=== PATIENT | female | born 1975 | race Caucasian/White ===

== ENCOUNTER 2017-10-12 02:50 | Emergency (ER) | payer BC ==
[2017-10-12 04:31] VITALS: BP 125/74; PULSE 87; TEMP 98.3; BMI 28.7
--- NOTE | 2017-10-12 07:15 | PDOC ---
History of Present Illness - General Chief Complaint: Pain Stated Complaint: FACIAL PAIN Time Seen by Provider: 10/12/17 07:14 - History of Present Illness Initial Comments: 42 year old female with PMH of trigeminal neuralgia presenting with chronic trigeminal neuralgia over the last few months. She is a patient of Dr. Noriega and is on Takendi (Topiramte) 75, Doxazin 50 nightly, Oxycontin, and Gabapentin 400 BID. The pain has been debilitating for the last few months and has prevented her from working despite up-titration of her medication. Describes the pain as a sharp sometimes tingling sensation shooting from the back of her right jaw around to her bottom teeth and lips. She is otherwise healthy. Denies fevers, chills, nausea vomiting, diarrhea, chest pain, or other symptoms. 10/12/17 07:32 Past History - Past Medical History Allergies/Adverse Reactions: Allergies Allergy/AdvReac Type Severity Reaction Status Date / Time No Known Allergies Allergy Verified 10/12/17 04:07 Home Medications: Ambulatory Orders Doxepin HCl 50 mg PO HS 10/12/17 Oxycodone HCl [Oxycodone HCl ER] 15 mg PO DAILY PRN 10/12/17 Pregabalin [Lyrica -] 400 mg PO BID 10/12/17 Topiramate [Trokendi Xr] 75 mg PO DAILY 10/12/17 - Surgical History Abdominal Surgery: Yes Cholecystectomy: Yes - Suicide/Smoking/Psychosocial Hx Smoking Status: No Smoking History: Never smoked Have you smoked in the past 12 months: No Number of Cigarettes Smoked Daily: 0 Information on smoking cessation initiated: No Hx Alcohol Use: No Drug/Substance Use Hx: No Review of Systems - Review of Systems Constitutional: No: Chills, Diaphoresis, Fever, Loss of Appetite HEENTM: No: Blurred Vision, Recent change in vision, Double Vision Respiratory: No: Cough, Shortness of Breath, Wheezing Cardiac (ROS): No: Chest Pain, Irregular Heart Rate, Chest Tightness ABD/GI: No: Diarrhea, Nausea, Vomiting : No: Burning, Dysuria, Discharge Musculoskeletal: Yes: Muscle Pain. No: Back Pain, Joint Pain *Physical Exam - Vital Signs Last Vital Signs Temp Pulse Resp BP Pulse Ox 98.3 F 87 14 125/74 99 10/12/17 04:07 10/12/17 04:07 10/12/17 04:07 10/12/17 04:07 10/12/17 04:07 - Physical Exam General Appearance: Yes: Nourished, Appropriately Dressed. No: Apparent Distress HEENT: positive: EOMI, MINDY, Normal ENT Inspection, Normal Voice Neck: positive: Trachea midline, Normal Thyroid, Supple. negative: Tender, Rigid Respiratory/Chest: positive: Lungs Clear, Normal Breath Sounds. negative: Chest Tender, Respiratory Distress Cardiovascular: positive: Regular Rhythm, Regular Rate Gastrointestinal/Abdominal: positive: Normal Bowel Sounds, Flat, Soft. negative : Tender Musculoskeletal: positive: Normal Inspection Extremity: positive: Normal Capillary Refill, Normal Inspection, Normal Range of Motion. negative: Tender Integumentary: positive: Normal Color, Dry, Warm Neurologic: positive: marketing sales consultant II-XII NML intact, Fully Oriented, Alert, Normal Mood/ Affect, Normal Response, Motor Strength 5/5. negative: Facial Droop Medical Decision Making - Medical Decision Making Spoke to Dr. Norieag and and he would like to prescribe her an antidepressant in his office and explore an ultrasound procedure for her neuralgia. In the acute setting we will use Toradol 30 IM and 2 Percocet. 10/12/17 08:57 Patient feeling better after the medication so will D/C with instructions to follow up with Leann earlier for med management and procedure planning. 10/12/17 10:56 *DC/Admit/Observation/Transfer Diagnosis at time of Disposition: Trigeminal neuralgia of right side of face - Discharge Dispostion Disposition: HOME Condition at time of disposition: Improved Admit: No - Referrals Referrals: Steve Ochoa MD [Primary Care Provider] - Quentin Noriega MD [Staff Physician] - - Patient Instructions Printed Discharge Instructions: DI for Trigeminal Neuralgia Additional Instructions: Please follow up with Dr. Noriega earlier this week or next week for medication management. Please return to the ED if you have any new or worsening symptoms. - Post Discharge Activity
[2017-10-12] MEDS ORDERED: KETOROLAC TROMETHAMINE 30 MG/1 ML VIAL IM ONE (08:56)
--- NOTE | 2017-10-12 09:05 | PDOC ---
Attending Attestation - Resident Resident Name: Rui Cody - ED Attending Attestation I have performed the following: I have examined & evaluated the patient, The case was reviewed & discussed with the resident, I agree w/resident's findings & plan, Exceptions are as noted - HPI HPI: 10/12/17 09:00 42-year-old female with history of trigeminal neuralgia with recurrence that began about 6 weeks ago, currently on increasing doses of gabapentin, Lyrica, and oxycodone as needed under the care of Dr. Noriega presents with intractable R facial trigeminal neuralgia pain despite medications. no changes or neuro deficits, next appt with Dr. Noriega is in October so she presents for pain relief and a plan. - Physicial Exam PE: 10/12/17 09:01 Afebrile, vital signs normal Overall well-appearing but in some distress secondary to right facial pain Pupils are equal round reactive, visual acuity is normal No motor deficit No rash - Medical Decision Making 10/12/17 09:05 Patient seen and evaluated with the resident. I agree with the overall evaluation, assessment, and management with the following summary of visit: My resident note 42-year-old female with history of trigeminal neuralgia experiencing exacerbation over the last 6 weeks presents for intractable pain despite increasing pain medications at home. No neurological deficits or new complaints. Pain control in ED - reassess Discussed with Dr. Noriega, plan is to expedite next appointment and attempt ultrasound treatment
[2017-10-12] MEDS ORDERED: KETOROLAC TROMETHAMINE 30 MG/1 ML VIAL ONE (10:11)
== END 2017-10-12 11:04 | disposition home or self-care (01) ==
LOC: JER 02:50
PROC: 3E0233Z Introduction of Anti-inflammatory into Muscle, Percutaneous Approach (ICD-10-PCS; principal; 2017-10-12)
DX: G50.0 Trigeminal neuralgia (principal)
CPT/HCPCS: 84703; 99281-25

== ENCOUNTER 2020-08-03 21:39 | Emergency (ER) | payer BC, OTHER ==
[2020-08-03 21:59] VITALS: BMI 29.2
[2020-08-03] MEDS ORDERED: ACETAMINOPHEN 1000 MG/100 ML BAG IVPB ONE (23:19)
[2020-08-03] MEDS ORDERED: SODIUM CHLORIDE 0.9% 500 ML INFUS.BAG IV ONE (23:20)
[2020-08-03] MEDS ORDERED: DEXAMETHASONE SOD PHOSPHATE 4 MG/1 ML VIAL IVPUSH ONE (23:27)
[2020-08-03] MEDS ORDERED: DEXAMETHASONE SOD PHOSPHATE 10 MG/1 ML VIAL ONE (23:40)
[2020-08-04 00:16] LABS: BASO % 0.2 % (0-2.0); EOS % 0.1 % (0-4.5); HEMATOCRIT 38.9 % (32.4-45.2); HEMOGLOBIN 13.2 GM/dL (10.7-15.3); LYMPH % 10.7 % (8-40); MCH 31.5 pg (25.7-33.7); MEAN CELL VOLUME 92.7 fl (80-96); MEAN PLT VOLUME 9.8 fl (7.5-11.1); MONO % 5.1 % (3.8-10.2); NEUT % 83.9 % (42.8-82.8); PLATELET COUNT 243 K/MM3 (134-434); RBC 4.19 M/mm3 (3.60-5.2); RDW 13.4 % (11.6-15.6); WHITE BLOOD COUNT 6.1 K/mm3 (4.0-10.0)
[2020-08-04] MEDS ORDERED: ACETAMINOPHEN INJECTION 100 ML IVPB ONE (00:20)
[2020-08-04 00:30] LABS: CHLORIDE 107 mmol/L (98-107); SODIUM 141 mmol/L (136-145)
[2020-08-04 00:32] LABS: ALBUMIN 3.7 g/dl (3.4-5.0); ANION GAP 8 MMOL/L (8-16); CALCIUM 8.3 mg/dL (8.5-10.1); CO2 26 mmol/L (21-32); GLUCOSE,RANDOM 106 mg/dL (74-106)
[2020-08-04 00:35] LABS: BILIRUBIN,DIRECT 0.1 mg/dL (0.0-0.2); CREATININE 0.6 mg/dL (0.55-1.3); SGOT/AST 13 U/L (15-37); SGPT/ALT 18 U/L (13-61)
[2020-08-04 00:36] LABS: LDH 124 U/L (84-246)
[2020-08-04 00:37] LABS: BILIRUBIN,TOTAL 0.2 mg/dL (0.2-1); TOT PROT 7.2 g/dl (6.4-8.2)
[2020-08-04 00:38] LABS: ALK PHOS 79 U/L (45-117)
[2020-08-04 00:48] LABS: INR 1.05 (0.83-1.09); PROTHROMBIN TIME (PATIENT) 12.7 SEC (9.7-13.0)
[2020-08-04 00:51] LABS: ACTIVATED PTT 30.1 SECONDS (25.2-36.5)
[2020-08-04] MEDS ORDERED: CEFTRIAXONE 1,000 MG in DEXTROSE 5%-WATER - 50 ML IVPB ONE (03:33)
[2020-08-04] MEDS ORDERED: AZITHROMYCIN IVPB 500 MG in DEXTROSE 5%-WATER - 250 ML IVPB ONE (03:33)
[2020-08-04 03:47] VITALS: BP 103/65; PULSE 98; TEMP 100.4
[2020-08-04] MEDS ORDERED: AZITHROMYCIN IVPB 500 MG/250 ML BAG IVPB ONE (05:37)
[2020-08-04] MEDS ORDERED: CEFTRIAXONE 1 GM/50 ML BAG ONE (06:11)
[2020-08-04] MEDS ORDERED: ACETAMINOPHEN 500 MG TABLET (FP) PO ONE (06:45)
[2020-08-04] MEDS ORDERED: ACETAMINOPHEN 325 MG TABLET (FP) ONE (06:46)
== END 2020-08-04 07:01 | disposition home or self-care (01) ==
LOC: JER 21:39
PROC: 3E0333Z Introduction of Anti-inflammatory into Peripheral Vein, Percutaneous Approach (ICD-10-PCS; principal; 2020-08-03)
PROC: 3E03329 Introduction of Other Anti-infective into Peripheral Vein, Percutaneous Approach (ICD-10-PCS; 2020-08-03)
PROC: 3E03329 Introduction of Other Anti-infective into Peripheral Vein, Percutaneous Approach (ICD-10-PCS; 2020-08-03)
PROC: 3E033GC Introduction of Other Therapeutic Substance into Peripheral Vein, Percutaneous Approach (ICD-10-PCS; 2020-08-03)
DX: U07.1 COVID-19 (principal); R07.9 Chest pain, unspecified; M54.5 Low back pain
CPT/HCPCS: 36415; 71045-TC-FY; 71275-TC; 80053; 82248; 82550; 82728; 83605; 83615; 84484; 85025; 85610; 85730; 86140; 87040; 93005; 93010; 99285-25; J0131; Q9967

== ENCOUNTER 2020-08-07 12:04 | Inpatient (IN) | payer BC ==
[2020-08-07 12:40] VITALS: BMI 29.2
[2020-08-07] MEDS ORDERED: CEFTRIAXONE 1,000 MG in DEXTROSE 5%-WATER - 50 ML IVPB ONE (13:07)
[2020-08-07] MEDS ORDERED: AZITHROMYCIN 500 MG TABLET PO ONE (13:07)
[2020-08-07] MEDS ORDERED: AZITHROMYCIN 500 MG TABLET ONE (13:38)
[2020-08-07] MEDS ORDERED: CEFTRIAXONE 1 GM/50 ML BAG ONE (13:38)
[2020-08-07 13:47] LABS: BASO % 0.1 % (0-2.0); EOS % 0.4 % (0-4.5); HEMATOCRIT 38.3 % (32.4-45.2); HEMOGLOBIN 13.1 GM/dL (10.7-15.3); LYMPH % 7.9 % (8-40); MCH 31.5 pg (25.7-33.7); MCHC 34.1 g/dl (32.0-36.0); MEAN CELL VOLUME 92.3 fl (80-96); MONO % 3.4 % (3.8-10.2); NEUT % 88.2 % (42.8-82.8); PLATELET COUNT 305 K/MM3 (134-434); RBC 4.14 M/mm3 (3.60-5.2); RDW 13.3 % (11.6-15.6); WHITE BLOOD COUNT 8.3 K/mm3 (4.0-10.0)
[2020-08-07 14:09] LABS: INR 1.07 (0.83-1.09); PROTHROMBIN TIME (PATIENT) 12.9 SEC (9.7-13.0)
[2020-08-07 14:11] LABS: ACTIVATED PTT 28.7 SECONDS (25.2-36.5); CHLORIDE 106 mmol/L (98-107); POTASSIUM 4.1 mmol/L (3.5-5.1); SODIUM 139 mmol/L (136-145)
[2020-08-07 14:13] LABS: CALCIUM 8.1 mg/dL (8.5-10.1)
[2020-08-07 14:14] LABS: ALBUMIN 3.3 g/dl (3.4-5.0); ANION GAP 6 MMOL/L (8-16); BLOOD UREA NITROGEN 7.7 mg/dL (7-18); CO2 27 mmol/L (21-32); GLUCOSE,RANDOM 96 mg/dL (74-106)
[2020-08-07 14:16] LABS: BILIRUBIN,DIRECT 0.1 mg/dL (0.0-0.2)
[2020-08-07 14:17] LABS: CREATININE 0.5 mg/dL (0.55-1.3); SGOT/AST 27 U/L (15-37); SGPT/ALT 26 U/L (13-61)
[2020-08-07 14:18] LABS: BILIRUBIN,TOTAL 0.4 mg/dL (0.2-1); TOT PROT 6.8 g/dl (6.4-8.2)
[2020-08-07 14:20] LABS: ALK PHOS 73 U/L (45-117)
[2020-08-07 14:21] LABS: LDH 189 U/L (84-246)
[2020-08-07] MEDS ORDERED: ALBUTEROL SO4 HFA INHALER IH PRN (16:23)
[2020-08-07] MEDS ORDERED: BENZOCAINE/MENTH/CETYLPYRD CL 1 EACH LOZENGE MM PRN (16:25)
[2020-08-07 19:15] LABS: URINE APPEARANCE Clear; URINE BILIRUBIN Negative (NEGATIVE); URINE COLOR Yellow; URINE GLUCOSE (UA) Negative (NEGATIVE); URINE KETONE 1+ (NEGATIVE); URINE LEUK ESTERASE Trace (NEGATIVE); URINE NITRITE Negative (NEGATIVE); URINE PROTEIN Negative (NEGATIVE); URINE UROBILINOGEN 0.2 mg/dL (0.2-1.0)
[2020-08-07] MEDS ORDERED: DIVALPROEX SODIUM 125 MG TABLET E.C. ONE (21:57)
[2020-08-07] MEDS: DIVALPROEX SODIUM 250 MG TABLET E.C. PO SCH (22:01)
[2020-08-08] MEDS ORDERED: ACETAMINOPHEN 325 MG TABLET (FP) PO ONE (04:07)
[2020-08-08 06:49] LABS: HEMATOCRIT 37.8 % (32.4-45.2); HEMOGLOBIN 13.2 GM/dL (10.7-15.3); MCH 31.6 pg (25.7-33.7); MCHC 34.9 g/dl (32.0-36.0); MEAN CELL VOLUME 90.7 fl (80-96); MEAN PLT VOLUME 9.3 fl (7.5-11.1); PLATELET COUNT 361 K/MM3 (134-434); RBC 4.16 M/mm3 (3.60-5.2); RDW 12.9 % (11.6-15.6); WHITE BLOOD COUNT 5.4 K/mm3 (4.0-10.0)
[2020-08-08 09:57] LABS: CALCIUM 8.7 mg/dL (8.5-10.1)
[2020-08-08] MEDS: DEXAMETHASONE 4 MG TABLET (FP) PO SCH (09:57)
[2020-08-08 09:58] LABS: ALBUMIN 3.4 g/dl (3.4-5.0); BLOOD UREA NITROGEN 10.4 mg/dL (7-18); MAGNESIUM 2.4 mg/dL (1.8-2.4)
[2020-08-08] MEDS: ENOXAPARIN NA (PORCINE) 40 MG/0.4 ML DISP.SYRIN SQ SCH (10:00)
[2020-08-08 10:01] LABS: BILIRUBIN,TOTAL 0.3 mg/dL (0.2-1); CREATININE 0.6 mg/dL (0.55-1.3); PHOSPHOROUS 3.4 mg/dL (2.5-4.9)
[2020-08-08 10:02] LABS: TOT PROT 7.1 g/dl (6.4-8.2)
[2020-08-08] MEDS ORDERED: REMDESIVIR 200 MG in SODIUM CHLORIDE 210 ML IVPB ONE (11:53)
[2020-08-08] MEDS: ACETAMINOPHEN 325 MG TABLET (FP) PO PRN ×2 (12:34→21:38)
[2020-08-08] MEDS ORDERED: ALBUTEROL SO4 HFA INHALER IH PRN (12:40)
[2020-08-08] MEDS ORDERED: PT OWN MED DRAWER 7, Y5N ONE (20:55)
[2020-08-08] MEDS: ASCORBIC ACID 500 MG TABLET (FP) PO SCH (21:37)
[2020-08-08] MEDS: FAMOTIDINE 20 MG TABLET PO SCH (21:37)
[2020-08-08] MEDS: DIVALPROEX SODIUM 250 MG TABLET E.C. PO SCH (21:46)
[2020-08-08] MEDS ORDERED: ZOLPIDEM TARTRATE 5 MG TABLET PO ONE (22:44)
[2020-08-08] MEDS ORDERED: MELATONIN 5 MG TABLETS PO ONE (22:49)
[2020-08-09 09:03] LABS: HEMATOCRIT 37.3 % (32.4-45.2); MCH 31.8 pg (25.7-33.7); MCHC 34.8 g/dl (32.0-36.0); MEAN CELL VOLUME 91.4 fl (80-96); MEAN PLT VOLUME 8.8 fl (7.5-11.1); PLATELET COUNT 405 K/MM3 (134-434); RBC 4.08 M/mm3 (3.60-5.2); WHITE BLOOD COUNT 8.6 K/mm3 (4.0-10.0)
[2020-08-09 09:17] LABS: POTASSIUM 3.9 mmol/L (3.5-5.1)
[2020-08-09 09:20] LABS: CALCIUM 8.8 mg/dL (8.5-10.1)
[2020-08-09 09:22] LABS: ALBUMIN 3.3 g/dl (3.4-5.0)
[2020-08-09 09:24] LABS: CREATININE 0.6 mg/dL (0.55-1.3)
[2020-08-09 09:25] LABS: BILIRUBIN,TOTAL 0.2 mg/dL (0.2-1); TOT PROT 6.7 g/dl (6.4-8.2)
[2020-08-09] MEDS: FAMOTIDINE 20 MG TABLET PO SCH ×2 (10:44→21:46)
[2020-08-09] MEDS: CHOLECALCIFEROL (VIT D3) 1,000 UNIT (25 MCG) TABLET PO SCH (10:44)
[2020-08-09] MEDS: ZINC SULFATE 220 MG CAPSULE (FP) PO SCH (10:44)
[2020-08-09] MEDS: ENOXAPARIN NA (PORCINE) 40 MG/0.4 ML DISP.SYRIN SQ SCH (10:44)
[2020-08-09] MEDS: ASCORBIC ACID 500 MG TABLET (FP) PO SCH ×2 (10:45→21:46)
[2020-08-09] MEDS: DEXAMETHASONE 4 MG TABLET (FP) PO SCH (10:45)
[2020-08-09] MEDS: REMDESIVIR 100 MG in SODIUM CHLORIDE 230 ML IVPB SCH (13:53)
[2020-08-09] MEDS: ACETAMINOPHEN 325 MG TABLET (FP) PO PRN (14:01)
[2020-08-09] MEDS ORDERED: ONDANSETRON 4 MG/2 ML VIAL IVPUSH PRN (18:41)
[2020-08-09] MEDS ORDERED: PT OWN MED DRAWER 7, Y5N ONE (21:11)
[2020-08-09] MEDS ORDERED: MELATONIN 5 MG TABLETS PO PRN (21:19)
[2020-08-09] MEDS: DIVALPROEX SODIUM 250 MG TABLET E.C. PO SCH (21:47)
[2020-08-10] MEDS: FAMOTIDINE 20 MG TABLET PO SCH ×2 (09:23→22:05)
[2020-08-10] MEDS: CHOLECALCIFEROL (VIT D3) 1,000 UNIT (25 MCG) TABLET PO SCH (09:23)
[2020-08-10] MEDS: ASCORBIC ACID 500 MG TABLET (FP) PO SCH ×2 (09:23→22:05)
[2020-08-10] MEDS: ENOXAPARIN NA (PORCINE) 40 MG/0.4 ML DISP.SYRIN SQ SCH (09:23)
[2020-08-10] MEDS: ZINC SULFATE 220 MG CAPSULE (FP) PO SCH (09:24)
[2020-08-10] MEDS ORDERED: DEXAMETHASONE SOD PHOSPHATE 10 MG/1 ML VIAL IVPUSH ONE (10:00)
[2020-08-10] MEDS ORDERED: ONDANSETRON 4 MG/2 ML VIAL IVPB PRN (10:24)
[2020-08-10] MEDS: REMDESIVIR 100 MG in SODIUM CHLORIDE 230 ML IVPB SCH (11:16)
[2020-08-10] MEDS: DOXEPIN HCL 25 MG CAPSULE PO PRN (23:24)
[2020-08-10] MEDS: DIVALPROEX SODIUM 250 MG TABLET E.C. PO SCH (23:24)
[2020-08-10] MEDS ORDERED: PT OWN MED DRAWER 7, Y5N ONE (23:35)
[2020-08-11] MEDS: ENOXAPARIN NA (PORCINE) 40 MG/0.4 ML DISP.SYRIN SQ SCH (09:10)
[2020-08-11] MEDS: CHOLECALCIFEROL (VIT D3) 1,000 UNIT (25 MCG) TABLET PO SCH (09:10)
[2020-08-11] MEDS: guaiFENesin 200 MG/10 ML 10 ML UNIT-DOSE CUPS PO PRN (09:10)
[2020-08-11] MEDS: ASCORBIC ACID 500 MG TABLET (FP) PO SCH ×2 (09:11→22:13)
[2020-08-11] MEDS: ZINC SULFATE 220 MG CAPSULE (FP) PO SCH (09:11)
[2020-08-11] MEDS: FAMOTIDINE 20 MG TABLET PO SCH ×2 (09:11→22:13)
[2020-08-11 10:25] LABS: HEMOGLOBIN 12.8 GM/dL (10.7-15.3); MCH 31.5 pg (25.7-33.7); MCHC 34.5 g/dl (32.0-36.0); MEAN CELL VOLUME 91.3 fl (80-96); PLATELET COUNT 386 K/MM3 (134-434); RBC 4.05 M/mm3 (3.60-5.2)
[2020-08-11 10:47] LABS: POTASSIUM 3.5 mmol/L (3.5-5.1)
[2020-08-11 10:56] LABS: ALBUMIN 3.1 g/dl (3.4-5.0); CALCIUM 8.7 mg/dL (8.5-10.1); CREATININE 0.8 mg/dL (0.55-1.3)
[2020-08-11 10:58] LABS: BILIRUBIN,TOTAL 0.2 mg/dL (0.2-1); TOT PROT 6.4 g/dl (6.4-8.2)
[2020-08-11] MEDS: REMDESIVIR 100 MG in SODIUM CHLORIDE 230 ML IVPB SCH (11:20)
[2020-08-11] MEDS: ACETAMINOPHEN 325 MG TABLET (FP) PO PRN (16:43)
[2020-08-11] MEDS ORDERED: PT OWN MED DRAWER 7, Y5N ONE (21:23)
[2020-08-11] MEDS: DOXEPIN HCL 25 MG CAPSULE PO PRN (22:13)
[2020-08-11] MEDS: DIVALPROEX SODIUM 250 MG TABLET E.C. PO SCH (22:14)
[2020-08-12] MEDS: FAMOTIDINE 20 MG TABLET PO SCH ×2 (09:12→21:09)
[2020-08-12] MEDS: ENOXAPARIN NA (PORCINE) 40 MG/0.4 ML DISP.SYRIN SQ SCH (09:12)
[2020-08-12] MEDS: ASCORBIC ACID 500 MG TABLET (FP) PO SCH ×2 (09:12→21:08)
[2020-08-12] MEDS: CHOLECALCIFEROL (VIT D3) 1,000 UNIT (25 MCG) TABLET PO SCH (09:12)
[2020-08-12] MEDS: ZINC SULFATE 220 MG CAPSULE (FP) PO SCH (09:12)
[2020-08-12] MEDS: REMDESIVIR 100 MG in SODIUM CHLORIDE 230 ML IVPB SCH (11:16)
[2020-08-12] MEDS: ACETAMINOPHEN 325 MG TABLET (FP) PO PRN (13:47)
[2020-08-12] MEDS ORDERED: PT OWN MED DRAWER 7, Y5N ONE ×2 (20:11→21:30)
[2020-08-12] MEDS: DIVALPROEX SODIUM 250 MG TABLET E.C. PO SCH (21:08)
[2020-08-13] MEDS ORDERED: DEXAMETHASONE 2 MG TABLET PO SCH (10:00)
[2020-08-13] MEDS ORDERED: PT OWN MED DRAWER 7, Y5N ONE ×5 (10:16→22:16)
[2020-08-13] MEDS ORDERED: DEXAMETHASONE PO SCH (10:30)
[2020-08-13] MEDS: ENOXAPARIN NA (PORCINE) 40 MG/0.4 ML DISP.SYRIN SQ SCH (10:45)
[2020-08-13] MEDS: CHOLECALCIFEROL (VIT D3) 1,000 UNIT (25 MCG) TABLET PO SCH (10:45)
[2020-08-13] MEDS: ASCORBIC ACID 500 MG TABLET (FP) PO SCH ×2 (10:45→21:07)
[2020-08-13] MEDS: FAMOTIDINE 20 MG TABLET PO SCH ×2 (10:45→21:07)
[2020-08-13] MEDS: guaiFENesin 200 MG/10 ML 10 ML UNIT-DOSE CUPS PO PRN (10:45)
[2020-08-13] MEDS: ZINC SULFATE 220 MG CAPSULE (FP) PO SCH (10:49)
[2020-08-13] MEDS: ALBUTEROL SO4 HFA INHALER IH SCH ×2 (13:39→20:38)
[2020-08-13] MEDS: DIVALPROEX SODIUM 250 MG TABLET E.C. PO SCH (21:07)
[2020-08-13] MEDS: DOXEPIN HCL 25 MG CAPSULE PO PRN (21:08)
[2020-08-14] MEDS: ZINC SULFATE 220 MG CAPSULE (FP) PO SCH (09:33)
[2020-08-14] MEDS: ASCORBIC ACID 500 MG TABLET (FP) PO SCH (09:33)
[2020-08-14] MEDS: CHOLECALCIFEROL (VIT D3) 1,000 UNIT (25 MCG) TABLET PO SCH (09:34)
[2020-08-14] MEDS: FAMOTIDINE 20 MG TABLET PO SCH (09:34)
[2020-08-14] MEDS: ENOXAPARIN NA (PORCINE) 40 MG/0.4 ML DISP.SYRIN SQ SCH (09:34)
[2020-08-14] MEDS: ALBUTEROL SO4 HFA INHALER IH SCH ×2 (09:34→14:41)
[2020-08-14] MEDS ORDERED: DEXAMETHASONE 4 MG TABLET (FP) PO SCH (10:00)
[2020-08-14 15:36] VITALS: BP 113/60; PULSE 99; TEMP 97.5
== END 2020-08-14 16:18 | disposition home or self-care (01) | DRG 177 ==
LOC: JER 12:04 → JERBED 15:49 → J4S 08-08 03:23 → J8W 08-08 18:13
PROVIDERS: ADMIT Internal Medicine; ATTEND Internal Medicine
PROC: XW13325 Transfusion of Convalescent Plasma (Nonautologous) into Peripheral Vein, Percutaneous Approach, New Technology Group 5 (ICD-10-PCS; principal; 2020-08-08)
PROC: XW033E5 Introduction of Remdesivir Anti-infective into Peripheral Vein, Percutaneous Approach, New Technology Group 5 (ICD-10-PCS; 2020-08-08)
DX: U07.1 COVID-19 (principal); J96.01 Acute respiratory failure with hypoxia; J12.82 Pneumonia due to coronavirus disease 2019; N39.0 Urinary tract infection, site not specified; J45.909 Unspecified asthma, uncomplicated; G50.0 Trigeminal neuralgia; G43.909 Migraine, unspecified, not intractable, without status migrainosus; F32.9 Major depressive disorder, single episode, unspecified; B96.20 Unspecified Escherichia coli [E. coli] as the cause of diseases classified elsewhere
CPT/HCPCS: 36415; 36430; 71045-TC-FY; 80053; 81003; 82248; 82550; 82728; 83605; 83615; 83735; 84100; 84439; 84443; 84484; 85025; 85027; 85379; 85610; 85730; 86140; 86850; 86900; 86901; 87040; 87086; 87186; 87804; 93005; 93010; 93306-TC; 94010; 94761; 99291; C9399; C9803; J1100; J8540; P9017; U0003

== ENCOUNTER 2023-10-20 15:02 | Day surgery (SDC) | payer BC, OTHER ==
[2023-10-20] MEDS: IRON SUCROSE INJECTION 300 MG in SODIUM CHLORIDE 250 ML IVPB ONE (15:27)
[2023-10-20 16:16] VITALS: RESP 18; TEMP 98.8
[2023-10-20 16:53] VITALS: BP 110/65; PULSE 78
== END 2023-10-20 17:10 | disposition home or self-care (01) ==
LOC: JONCNONCHE 15:02 → J7W 15:06 → JONCNONCHE 17:10
PROVIDERS: ATTEND Internal Medicine Hematology & Oncology
PROC: 3E033GC Introduction of Other Therapeutic Substance into Peripheral Vein, Percutaneous Approach (ICD-10-PCS; principal; 2023-10-20)
DX: D50.9 Iron deficiency anemia, unspecified (principal)
CPT/HCPCS: 96365; J1756

== ENCOUNTER 2023-10-27 12:05 | Day surgery (SDC) | payer BC, OTHER ==
[2023-10-27] MEDS: IRON SUCROSE INJECTION 300 MG in SODIUM CHLORIDE 250 ML IVPB ONE (12:33)
[2023-10-27 17:55] VITALS: BP 103/62; PULSE 77; RESP 20; TEMP 98.5
== END 2023-10-27 14:25 | disposition home or self-care (01) ==
LOC: J7W 12:05 → JONCNONCHE 12:05
PROVIDERS: ATTEND Internal Medicine Hematology & Oncology
PROC: 3E033GC Introduction of Other Therapeutic Substance into Peripheral Vein, Percutaneous Approach (ICD-10-PCS; principal; 2023-10-27)
DX: D50.9 Iron deficiency anemia, unspecified (principal)
CPT/HCPCS: 96365; J1756

== ENCOUNTER 2023-11-03 14:18 | Day surgery (SDC) | payer BC, OTHER ==
[2023-11-03] MEDS: IRON SUCROSE INJECTION 300 MG in SODIUM CHLORIDE 250 ML IVPB ONE (14:31)
[2023-11-03 16:16] VITALS: RESP 18; TEMP 98.1
[2023-11-03 16:23] VITALS: BP 116/70; PULSE 85
== END 2023-11-03 16:31 | disposition home or self-care (01) ==
LOC: JONCNONCHE 14:18 → J7W 14:19 → JONCNONCHE 16:31
PROVIDERS: ATTEND Internal Medicine Hematology & Oncology
PROC: 3E033GC Introduction of Other Therapeutic Substance into Peripheral Vein, Percutaneous Approach (ICD-10-PCS; principal; 2023-11-03)
DX: D50.9 Iron deficiency anemia, unspecified (principal)
CPT/HCPCS: 96365; J1756

== ENCOUNTER 2023-11-10 11:57 | Day surgery (SDC) | payer BC, OTHER ==
[2023-11-10] MEDS: IRON SUCROSE INJECTION 300 MG in SODIUM CHLORIDE 250 ML IVPB ONE (12:22)
[2023-11-10 16:01] VITALS: TEMP 98.2
[2023-11-10 16:07] VITALS: BP 115/67; PULSE 76; RESP 20
== END 2023-11-10 13:30 | disposition home or self-care (01) ==
LOC: JONCNONCHE 11:57 → J7W 11:58 → JONCNONCHE 13:30
PROVIDERS: ATTEND Internal Medicine Hematology & Oncology
PROC: 3E033GC Introduction of Other Therapeutic Substance into Peripheral Vein, Percutaneous Approach (ICD-10-PCS; principal; 2023-11-10)
DX: D50.9 Iron deficiency anemia, unspecified (principal)
CPT/HCPCS: 96365; J1756